=== PATIENT | male | born 1965 | race Caucasian/White ===

== ENCOUNTER 2024-09-21 07:09 | Day surgery (SDC) | payer BC ==
[~2024-09-21] VITALS: Ht 195.6 cm; Wt 112.9 kg
[~2024-09-21 07:09] MED LIST: ATOR10TA PO; GLIM-38 PO; LOSA-533 PO; SEMA3TAB2 PO; SITA50TA PO; ZOLP5TAB5 PO
[2024-09-21] MEDS ORDERED: ceFAZolin 2 GM/D5W100ml 100 ML IV ONE (07:23)
[2024-09-21] MEDS ORDERED: HEPARIN SODIUM (PORCINE) 5000 UNITS/ML 1ML VIAL ONE (08:05)
[2024-09-21] MEDS ORDERED: fentaNYL CITRATE 100 MCG/2 ML VL ONE (08:50)
[2024-09-21] MEDS ORDERED: DexAMETHasone SOD PHOS 10MG/1ML VIAL INJ ONE (08:51)
[2024-09-21] MEDS ORDERED: PROPOFOL 10 MG/ML 20 ML IV ONE (08:51)
[2024-09-21] MEDS ORDERED: ONDANSETRON HCL 4 MG/2 ML VIAL ONE (08:51)
[2024-09-21] MEDS ORDERED: ROCURONIUM 10MG/ML 10ML VIAL IV ONE (08:51)
[2024-09-21] MEDS ORDERED: LIDOCAINE 2% (LOCAL ANESTH.) PF 5ml SDV ONE (08:51)
[2024-09-21] MEDS ORDERED: HYDROmorphone HCL 2 MG/ML VL/or syr ONE (08:51)
[2024-09-21] MEDS ORDERED: KETOROLAC TROMETH 30 MG/ML 1ML VIAL ONE (08:51)
[2024-09-21] MEDS ORDERED: ePHEDrine SULFATE 50 MG/ML AMP ONE (08:51)
[2024-09-21] MEDS ORDERED: GLYCOPYRROLATE 0.2 MG/ML 1ML VIAL ONE (08:51)
[2024-09-21] MEDS ORDERED: MIDAZOLAM HCL 2MG/2ML 2ml VIAL (1mg/ml) ONE (08:51)
[2024-09-21] MEDS ORDERED: SUGAMMADEX 200mg/2ml Vial (100MG/ML) IV ONE (10:29)
[2024-09-21] MEDS: LIDOCAINE 1% HCL (LOCAL ANESTH.) INJ 20ML MDV ONE (10:40)
[2024-09-21] MEDS: BUPIVACAINE 0.5% MPF INJ 30ML SDV IJ ONE (10:40)
[2024-09-21 11:08] VITALS: TEMP 98.2; O2SAT 97
[2024-09-21] MEDS ORDERED: HYDR-4902 PO (11:09)
[2024-09-21] MEDS ORDERED: ONDANSETRON HCL 4 MG/2 ML VIAL IV ONE (11:30)
[2024-09-21] MEDS ORDERED: HYDROmorphone HCL 2 MG/ML VL/or syr IV PRN (11:30)
[2024-09-21 12:02] VITALS: BP 150/88; PULSE 82; RESP 12; O2SAT 97
== END 2024-09-21 12:11 | disposition home or self-care (01) ==
LOC: SUR 07:09
DX: K42.9 Umbilical hernia without obstruction or gangrene (principal); I10 Essential (primary) hypertension; E11.9 Type 2 diabetes mellitus without complications; F17.210 Nicotine dependence, cigarettes, uncomplicated; Z79.899 Other long term (current) drug therapy
CPT/HCPCS: 49591; 82962; 86850; 86900; 86901; C1781; J1100; J1171; J1644; J1885; J2003; J2250; J2405; J2704; J3010; J3490